=== PATIENT | female | born 1965 | race Caucasian/White ===

== ENCOUNTER 2017-12-31 13:06 | Emergency (ER) | payer OTHER ==
--- NOTE | 2017-12-31 13:48 | ED ---
Headache - HPI Summary HPI Summary: 52 y/o female presents to the ED c/o worsening, constant migraine HAWTHORNE starting this morning, lasting hours. HAWTHORNE described as piercing pain at the front and pain all around the back of the neck. HAWTHORNE is severe currently. Aggravated with bright lights. PMHx migraine HAWTHORNE's - pt gets often. Dr. Sheryl Potter. Associated sx: myalgias, fatigue, mild nausea. Pt states last night she was having pressure pain behind the eyes, but felt different than today. This is scribe Juan Leonard documenting for attending physician Shai Holman M.D. - History Of Current Complaint Chief Complaint: EDHeadache Stated Complaint: MIGRAINE Time Seen by Provider: 12/31/17 13:45 Hx Obtained From: Patient Hx Last Menstrual Period: 11/06/12 Onset/Duration: Started hours ago, Still Present Currently Pain Is: Severe Timing: Constant Character: Sharp Location of Headache: Frontal Radiates to: around neck Aggravating Factor: Bright Lights Allevating Factors: Nothing Associated Signs And Symptoms: Nausea, Neck Pain, Other (Noted In Comments) - myalgias, fatigue - Allergies/Home Medications Allergies/Adverse Reactions: Allergies Allergy/AdvReac Type Severity Reaction Status Date / Time acyclovir Allergy Nausea And Verified 12/31/17 13:18 Vomiting cyclobenzaprine Allergy Insomnia Verified 12/31/17 13:18 erythromycin base Allergy Stomach Verified 12/31/17 13:18 Cramps formaldehyde Allergy Unknown Verified 12/31/17 13:18 Reaction Details gluten Allergy Unknown Verified 12/31/17 13:18 Reaction Details lactose Allergy Unknown Verified 12/31/17 13:18 Reaction Details Latex, Natural Rubber Allergy Unknown Verified 12/31/17 13:18 Reaction Details permethrin Allergy Rash Verified 12/31/17 13:18 Sulfa (Sulfonamide Allergy Rash Verified 12/31/17 13:18 Antibiotics) Quarternium-15 Allergy Unknown Uncoded 12/31/17 13:18 Reaction Details PMH/Surg Hx/FS Hx/Imm Hx Previously Healthy: No Endocrine/Hematology History: Denies: Hx Diabetes, Hx Thyroid Disease Cardiovascular History: Denies: Hx Hypertension Respiratory History: Denies: Hx Asthma, Hx Chronic Obstructive Pulmonary Disease (COPD) GI History: Denies: Hx Ulcer - Surgical History Surgery Procedure, Year, and Place: Right eye surgical repair of retina - Immunization History Immunizations Up to Date: Yes Infectious Disease History: No Infectious Disease History: Denies: Hx Clostridium Difficile, Hx Hepatitis, Hx Human Immunodeficiency Virus (HIV), Hx of Known/Suspected MRSA, Hx Shingles, Hx Tuberculosis, Hx Known/ Suspected VRE, Hx Known/Suspected VRSA, History Other Infectious Disease, Traveled Outside the [place] in Last 30 Days - Social History Alcohol Use: Rare Substance Use Type: Reports: None Smoking Status (MU): Former Smoker Review of Systems Positive: Fatigue Eyes: Negative ENT: Negative Cardiovascular: Negative Respiratory: Negative Positive: Nausea Genitourinary: Negative Positive: Myalgia, Other - neck pain Skin: Negative Positive: Headache Psychological: Normal All Other Systems Reviewed And Are Negative: Yes Physical Exam - Summary Physical Exam Summary: Appearance: The patient is well-nourished in no acute distress and in no acute pain. Skin: The skin is warm and dry and skin color reflects adequate perfusion. HEENT: The head is normocephalic and atraumatic. The pupils are equal and reactive. The conjunctivae are clear and without drainage. Nares are patent and without drainage. Mouth reveals moist mucous membranes and the throat is without erythema and exudate. The external ears are intact. The ear canals are patent and without drainage. The tympanic membranes are intact. Neck: The neck is supple with full range of motion and non-tender. There are no carotid bruits. There is no neck vein distension. Respiratory: Chest is non-tender. Lungs are clear to auscultation and breath sounds are symmetrical and equal. Cardiovascular: Heart is regular rate and rhythm. There is no murmur or rub auscultated. There is no peripheral edema and pulses are symmetrical and equal. Abdomen: The abdomen is soft and non-tender. There are normal bowel sounds heard in all four quadrants and there is no organomegaly palpated. Musculoskeletal: There is no back tenderness noted. Extremities are non-tender with full range of motion. There is good capillary refill. There is no peripheral edema or calf tenderness elicited. Neurological: Patient is alert and oriented to person, place and time. The patient has symmetrical motor strength in all four extremities. Cranial nerves are grossly intact. Deep tendon reflexes are symmetrical and equal in all four extremities. Psychiatric: The patient has an appropriate affect and does not exhibit any anxiety or depression. Triage Information Reviewed: Yes Vital Signs On Initial Exam: Initial Vitals Temp Pulse Resp BP Pulse Ox 97.6 F 95 15 135/81 99 12/31/17 13:07 12/31/17 13:07 12/31/17 13:07 12/31/17 13:07 12/31/17 13:07 Vital Signs Reviewed: Yes Diagnostics - Vital Signs Vital Signs Temp Pulse Resp BP Pulse Ox 12/31/17 13:07 97.6 F 95 15 135/81 99 - Laboratory Lab Statement: Any lab studies that have been ordered have been reviewed, and results considered in the medical decision making process. Headache Course/Dx - Course Course Of Treatment: Ms. Esteban presented to the emergency department complaining that she had a migraine headache brought on by someone's perfume. She has a history of multiple chemical sensitivities. The only medication she would except was a shot of IM Toradol. She did get relief from that and requested to be discharged. Her exam was unremarkable and she reported that her headache was typical for her. - Diagnoses Provider Diagnoses: Migraine Discharge - Sign-Out/Discharge Documenting (check all that apply): Patient Departure - Discharge Plan Condition: Stable Disposition: HOME Patient Education Materials: Migraine Headache (ED) Referrals: Kristen Coombs DIRECTOR [employer] [Primary Care Provider] - 4 Days (PLEASE F/U IN 3-5 DAYS) Additional Instructions: RETURN FOR WORSENING SYMPTOMS - Billing Disposition and Condition Condition: STABLE Disposition: Home
[2017-12-31] MEDS ORDERED: Ketorolac INJ* 30 MG/ML 1 ML VIAL IM ONE (14:04)
[2017-12-31 16:46] VITALS: BP 119/83
== END 2017-12-31 16:45 | disposition home or self-care (01) ==
LOC: ED 13:06
DX: G43.909 Migraine, unspecified, not intractable, without status migrainosus (principal); Z88.8 Allergy status to other drugs, medicaments and biological substances; Z88.2 Allergy status to sulfonamides; Z88.3 Allergy status to other anti-infective agents; Z87.891 Personal history of nicotine dependence
CPT/HCPCS: 96372; 99281; J1885